=== PATIENT | female | born 1960 | race Caucasian/White ===

== ENCOUNTER → 2017-03-19 | Outpatient (CLI) | payer OTHER | LOC: GMAB 16:03 | PROVIDERS: ATTEND Family Medicine | DX: R00.0 Tachycardia, unspecified (principal) ==

== ENCOUNTER → 2017-03-19 | Outpatient (CLI) | payer OTHER | END | disposition home or self-care (01) | LOC: GMAB 14:45 | PROVIDERS: ATTEND Family Medicine | DX: R00.0 Tachycardia, unspecified (principal) ==

== ENCOUNTER 2018-10-15 05:49 | Day surgery (SDC) | payer OTHER ==
[2018-10-15] MEDS ORDERED: LACTATED RINGERS 1,000 ML ONE (06:07)
[2018-10-15] MEDS ORDERED: PROPOFOL 200 MG/20 ML VIAL IV ONE (07:00)
[2018-10-15] MEDS ORDERED: LIDOCAINE 1% 10 ML VIAL INJ ONE (07:00)
[2018-10-15] MEDS ORDERED: LACTATED RINGERS 1,000 ML IVS ONE (08:30)
--- NOTE | 2018-10-15 10:44 | OP ---
DATE OF PROCEDURE: 10/15/18 PREOPERATIVE DIAGNOSIS: 1. Personal history of polyps. 2. Family history of colonic polyps in her father. 3. Last colonoscopy was 2013. POSTOPERATIVE DIAGNOSIS: 1. Colonic polyps. 2. Diverticulosis. PROCEDURE: 1. Colonoscopy plus polypectomy. SURGEON: Kenney Berger MD. COMPLICATIONS: None apparent. BLOOD LOSS: None. MEDICATIONS: Monitored anesthesia care. DESCRIPTION OF PROCEDURE: Informed consent was obtained prior to sedation. The preprocedure cardiopulmonary assessment was satisfactory. The patient was placed in the left lateral decubitus position and was sedated. A digital rectal exam was unremarkable. The tip of the Olympus colonoscope was inserted in the rectum and guided over to the cecum. The cecum was identified by locating the ileocecal valve and appendiceal orifice. Prep was good. Retroflexed view in the right colon was obtained. The mucosa of the cecum, ascending colon, hepatic flexure, transverse colon, splenic flexure, descending colon and sigmoid colon was closely examined. Direct and retroflexed views of the rectum were obtained. The patient has two tiny polyps. Both were about 2 mm in size. One was in the ascending colon and the second was in the sigmoid colon. Both were removed with a cold snare and recovered. The patient has some scattered sigmoid diverticula as well. Otherwise, the colonoscopy was unremarkable. RECOMMENDATIONS: 1. Followup the polyp pathology. 2. Followup colonoscopy is recommended for 5 years from now. #[id number] cc: Racheal Whitley MD [facility]
[2018-10-15 11:11] VITALS: O2SAT 100
[2018-10-15 11:21] VITALS: BP 111/76; TEMP 97.3
== END 2018-10-15 11:00 | disposition home or self-care (01) ==
LOC: AMB 05:49
PROVIDERS: ATTEND Internal Medicine Gastroenterology
DX: Z86.010 Personal history of colon polyps (principal); D12.2 Benign neoplasm of ascending colon; D12.5 Benign neoplasm of sigmoid colon; K57.30 Diverticulosis of large intestine without perforation or abscess without bleeding; E78.00 Pure hypercholesterolemia, unspecified; J45.909 Unspecified asthma, uncomplicated; Z83.71 Family history of colonic polyps; Z90.710 Acquired absence of both cervix and uterus; Z88.8 Allergy status to other drugs, medicaments and biological substances; Z79.82 Long term (current) use of aspirin; Z79.899 Other long term (current) drug therapy
CPT/HCPCS: 00812; 45385; J3490; J7120